=== PATIENT | female | born 2000 | race Two or more races ===

== ENCOUNTER 2020-05-10 15:28 | Emergency (ER) | payer MEDICAID ==
[~2020-05-10] VITALS: Ht 167.6 cm; Wt 61.2 kg
--- NOTE | 2020-05-10 15:30 | NUR ---
BIBRA 39 FROM BANK C/O SEIZURE EPISODE WITNESSED BY MOTHER. BG 127, TO ER BED 9, HOOKED TO MONITOR, CHANGED TO HOSP GOWN, WARM BLANKET PROVIDED, PER MOTHER, SEIZURE LASTED "APPROXIMATELY 1 MIN". PATIENT HAS Hx OF EPILEPSY, LAST KNOWN EPISODE WAS LAST YEAR MONTH OF MAY PER SISTER. PATIENT AT 13 WEEKS. LMP 02/01/2020. DR GOLDSTEIN AT BEDSIDE FOR EVAL.
--- NOTE | 2020-05-10 15:40 | NUR ---
PATIENT AWAKE, AAO x 3, C/O HEADACHE.
[2020-05-10 15:56] LABS: BASOPHILS % (AUTO) 0.3 % (0.0-2.0); EOSINOPHILS % (AUTO) 1.2 % (0.0-6.0); HEMATOCRIT 36 % (33-45); HEMOGLOBIN 12.1 g/dL (11.5-14.8); LYMPHOCYTES % (AUTO) 15.9 % (20.0-44.0); MEAN CORPUSCULAR HGB CONC 34 g/dl (31.0-36.0); MEAN CORPUSCULAR VOLUME 97 fL (82-100); MONOCYTES # (AUTO) 0.3 /CMM (0.1-1.30); MONOCYTES % (AUTO) 4.7 % (2.0-12.0); NEUTROPHILS # (AUTO) 4.9 /CMM (1.8-8.9); NEUTROPHILS % (AUTO) 77.9 % (43.0-81.0); PLATELET COUNT (AUTO) 154 /CMM (150-450); RED BLOOD CELL COUNT(AUTO) 3.68 MIL/uL (4.0-5.2); WHITE BLOOD COUNT (AUTO) 6.2 K/uL (4.3-11.0)
[2020-05-10] MEDS ORDERED: IV NS 0.9% 1,000 ML IV ONE ×2 (16:00→18:30)
[2020-05-10] MEDS ORDERED: LEVETIRACETAM (500MG) 1,000 MG in IV NS 0.9% 100 ML IV SCH (16:00)
[2020-05-10 16:04] LABS: CALCIUM, SERUM 8.6 mg/dL (8.5-10.1); CARBON DIOXIDE 24 mmol/L (21-32); CHLORIDE 103 mmol/L (98-107); CREATININE 0.7 mg/dL (0.6-1.3); GLUCOSE 105 mg/dL (74-106); POTASSIUM 3.4 mmol/L (3.5-5.1); SODIUM SERUM 135 mmol/L (136-145); UREA NITROGEN, BLOOD 8 mg/dL (7-18)
[2020-05-10 16:10] LABS: ALANINE AMINOTRANSFERASE 15 U/L (12-78); ALCOHOL, BLOOD < 3 mg/dL (0-0); ALKALINE PHOSPHATASE 46 U/L (46-116); ASPARTATE AMINOTRANSFERASE 18 U/L (15-37); BILIRUBIN,DIRECT 0.1 mg/dL (0.0-0.2); BILIRUBIN,TOTAL 0.3 mg/dL (0.2-1.0); TOTAL PROTEIN, SERUM 6.4 g/dL (6.4-8.2)
[2020-05-10] MEDS ORDERED: POTASSIUM CHLORIDE 20 MEQ TAB.PRT.SR PO ONE ×2 (17:30→17:34)
--- NOTE | 2020-05-10 17:39 | NUR ---
URINE SAMPLE COLLECTED AND SENT TO LAB
[2020-05-10 19:23] VITALS: BP 123/66
--- NOTE | 2020-05-10 19:23 | NUR ---
Patient is ambulatory with a steady gait.
--- NOTE | 2020-05-10 19:23 | NUR ---
Patient discharged to home in stable condition. Written and verbal after care instructions given. Patient verbalizes understanding of instruction.
--- NOTE | 2020-05-10 19:23 | NUR ---
IV removed. Catheter intact and site benign. Pressure and 4x4 applied to site. No bleeding noted.
== END 2020-05-10 19:24 | disposition home or self-care (01) ==
LOC: ER 15:30
DX: R56.9 Unspecified convulsions (principal); E87.6 Hypokalemia; E86.0 Dehydration; J45.909 Unspecified asthma, uncomplicated
CPT/HCPCS: 36415; 76856; 80048; 80076; 80305; 80307; 82962; 85025; 93005 ×2; 96361; 96365; 99285; J1953; J7030 ×3; G0480